=== PATIENT | female | born 2000 | race Caucasian/White ===

== ENCOUNTER 2024-04-10 14:30 | Emergency (ER) | payer BC, MEDICAID | END 2024-04-10 15:25 | disposition home or self-care (01) | LOC: VM.ED 14:30 | DX: S16.1XXA Strain of muscle, fascia and tendon at neck level, initial encounter (principal); E10.9 Type 1 diabetes mellitus without complications; Z79.899 Other long term (current) drug therapy; W18.30XA Fall on same level, unspecified, initial encounter; Y93.01 Activity, walking, marching and hiking | CPT/HCPCS: 99283 ==